=== PATIENT | male | born 1975 | race Caucasian/White ===

== ENCOUNTER 2017-05-28 00:40 | Inpatient (IN) | END 2017-05-29 18:25 | disposition home or self-care (01) | DRG 897 ==

== ENCOUNTER 2018-01-27 11:07 | Emergency (ER) | END 2018-01-27 13:59 | disposition home or self-care (01) ==

== ENCOUNTER 2018-07-03 19:53 | Emergency (ER) | payer SELFPAY ==
[~2018-07-03] VITALS: Wt 101.0 kg
[~2018-07-03 19:53] MED LIST: LORA1TAB PO; OMEP40CA6 PO; ONDA8TAB14 PO
[2018-07-04] MEDS ORDERED: SOD CHLORIDE 0.9% 1,000 ML IV STA (01:03)
[2018-07-04] MEDS ORDERED: LIDOCAINE/MYLANTA 40 ML BTL PO STA (01:03)
[2018-07-04] MEDS ORDERED: morphine 4 MG/ML VIAL IV STA (01:03)
[2018-07-04] MEDS ORDERED: ONDANSETRON 4 MG INJ IV STA (01:03)
[2018-07-04] MEDS ORDERED: FAMOTIDINE 20 MG TAB PO STA (01:03)
[2018-07-04] MEDS ORDERED: LORAZEPAM 2 MG INJ IV ONE (05:00)
--- NOTE | 2018-07-04 05:01 | ERD ---
ER Documentation Chief Complaint Chief Complaint DIFFUSE ABD PAIN, PALPITATION X TODAY. HX HTN HPI 42-year-old male presenting with complaints of lower abdominal pain that started yesterday. He also had one episode of blood after having a bowel movement which scared him. He has been complaining of palpitations as well. He has been sober for 5 months but decided to drink 1 bottle of wine yesterday. This made him feel much worse. No fevers or chills. No nausea or vomiting. His pain is aching, nonradiating, intermittent with no alleviating or exacerbating factors. ROS All systems reviewed and are negative except as per history of present illness. Medications Home Meds Discontinued Scripts Omeprazole* (Omeprazole*) 40 Mg Capsule.dr, 40 MG PO DAILY, #10 CAP Prov:JULIANNA CHAWLASTWILLS A. DO 01/27/18 Ondansetron (Ondansetron Odt) 8 Mg Tab.rapdis, 8 MG PO Q6H PRN for NAUSEA AND/OR VOMITING, #10 TAB Prov:LEJULIANNA URIBESTOLOS A. DO 01/27/18 Lorazepam* (Lorazepam*) 1 Mg Tablet, 1 MG PO Q8H PRN for ANXIETY, #15 TAB Prov:LEKKOS,APOSTOLOS A. DO 01/27/18 Allergies Allergies: Coded Allergies: No Known Allergy (Unverified , 07/04/18) PMhx/Soc Medical and Surgical Hx: pt denies Surgical Hx History of Surgery: Yes (ELBOW REPAIR) Anesthesia Reaction: No Hx Neurological Disorder: No Hx Respiratory Disorders: No Hx Cardiac Disorders: Yes (HTN) Hx Psychiatric Problems: No Hx Miscellaneous Medical Probl: No Hx Alcohol Use: Yes (History of alcoholism) Hx Substance Use: No Hx Tobacco Use: No Smoking Status: Never smoker FmHx Family History: No diabetes Physical Exam Vitals Vital Signs Date Temp Pulse Resp B/P (MAP) Pulse Ox O2 O2 Flow FiO2 Time Delivery Rate 07/04/18 97 18 117/85 98 Room Air 03:23 (96) 07/04/18 98 18 129/90 96 Room Air 01:44 (103) 07/03/18 99.0 116 20 159/118 97 20:33 (132) Physical Exam Const: No acute distress Head: Atraumatic Eyes: Normal Conjunctiva ENT: Normal External Ears, Nose and Mouth. Neck: Full range of motion. No meningismus. Resp: Clear to auscultation bilaterally Cardio: Tachycardic rate with regular rhythm, no murmurs Abd: Soft, mild lower abdominal tenderness with guarding but no rebound, non distended. Negative Rain sign. Normal bowel sounds Skin: No petechiae or rashes Back: No midline or flank tenderness Ext: No cyanosis, or edema Neur: Awake and alert Psych: Normal Mood and Affect Result Diagram: 07/04/18 0122 07/04/18 0122 Results 24 hrs Laboratory Tests Test 07/04/18 01:21 07/04/18 01:22 Urine Color COLORLESS Urine Clarity CLEAR Urine pH 8.0 Urine Specific [place] 1.005 Urine Ketones NEGATIVE mg/dL Urine Nitrite NEGATIVE mg/dL Urine Bilirubin NEGATIVE mg/dL Urine Urobilinogen NEGATIVE mg/dL Urine Leukocyte Esterase NEGATIVE Talon/ul Urine Microscopic RBC 0 /HPF Urine Microscopic WBC 0 /HPF Urine Hemoglobin 1+ mg/dL Urine Glucose NEGATIVE mg/dL Urine Total Protein NEGATIVE mg/dl White Blood Count 11.3 10^3/ul Red Blood Count 5.36 10^6/ul Hemoglobin 16.8 g/dl Hematocrit 49.0 % Mean Corpuscular Volume 91.4 fl Mean Corpuscular Hemoglobin 31.3 pg Mean Corpuscular Hemoglobin Concent 34.3 g/dl Red Cell Distribution Width 13.0 % Platelet Count 350 10^3/UL Mean Platelet Volume 10.4 fl Immature Granulocytes % 0.400 % Neutrophils % 40.4 % Lymphocytes % 48.2 % Monocytes % 8.8 % Eosinophils % 1.4 % Basophils % 0.8 % Nucleated Red Blood Cells % 0.0 /100WBC Immature Granulocytes # 0.050 10^3/ul Neutrophils # 4.6 10^3/ul Lymphocytes # 5.5 10^3/ul Monocytes # 1.0 10^3/ul Eosinophils # 0.2 10^3/ul Basophils # 0.1 10^3/ul Nucleated Red Blood Cells # 0.0 10^3/ul Sodium Level 142 mmol/L Potassium Level 3.7 mmol/L Chloride Level 97 mmol/L Carbon Dioxide Level 30 mmol/L Anion Gap 15 Blood Urea Nitrogen 10 mg/dl Creatinine 0.83 mg/dl Est Glomerular Filtrat Rate mL/min > 60 mL/min Glucose Level 120 mg/dl Calcium Level 9.5 mg/dl Total Bilirubin 0.5 mg/dl Direct Bilirubin 0.00 mg/dl Indirect Bilirubin 0.5 mg/dl Aspartate Amino Transf (AST/SGOT) 60 IU/L Alanine Aminotransferase (ALT/SGPT) 66 IU/L Alkaline Phosphatase 91 IU/L Total Protein 8.1 g/dl Albumin 4.7 g/dl Globulin 3.40 g/dl Albumin/Globulin Ratio 1.38 Lipase 97 U/L Current Medications Medications Dose Sig/Candice Start Time Status Last (Trade) Ordered Route PRN Stop Time Admin Dose Reason Admin Sodium 1,000 ml @ Q1H STAT 07/04/18 DC 07/04/18 Chloride 1,000 mls/hr IV 01:03 01:12 07/04/18 02:02 Morphine 4 mg ONCE STAT 07/04/18 DC 07/04/18 Sulfate IV 01:03 01:12 (morphine) 07/04/18 01:05 Ondansetron 4 mg ONCE STAT 07/04/18 DC 07/04/18 HCl (Zofran IV 01:03 01:12 Inj) 07/04/18 01:05 Famotidine 20 mg ONCE STAT 07/04/18 DC 07/04/18 (Pepcid) PO 01:03 01:12 07/04/18 01:05 40 ml ONCE STAT 07/04/18 DC 07/04/18 Miscellaneous PO 01:03 01:12 Medication 07/04/18 01:05 (Gi Cocktail (2)) Lorazepam 0.5 mg ONCE ONCE 07/04/18 (Ativan) IV 05:00 07/04/18 05:01 Procedures/MDM EMERGENT LABS AND DIAGNOSTIC STUDIES: Lab Results above were reviewed and interpreted by me. CBC: no anemia or evidence of infection CMP: No evidence of clinically significant electrolyte abnormality, acidosis, renal failure, hypoglycemia, liver disease, or biliary obstruction UA: no evidence of infection 12-lead EKG was interpreted by Corine Olivarez MD: Sinus tachycardia with ventricular rate of 102 beats per minute Normal axis Normal intervals No acute ST or T wave changes suggestive of acute ischemia or STEMI. Radiology Results as interpreted by Radiology below were reviewed by Lissett Olivarez MD: CT abdomen pelvis shows no acute abnormalities Initial Nursing notes reviewed. Previous Medical Records requested via the Electronic Health Record. EMERGENCY DEPARTMENT COURSE / MEDICAL DECISION MAKING: Patient is presenting with abdominal pain and one episode of rectal bleeding, now resolved. Vitals were notable for tachycardia. It seems like he might be somewhat intoxicated as well. Labs did not show any significant abnormalities. CT of the abdomen and pelvis was done to evaluate for possible diverticulitis versus appendicitis. CT did not show any significant abnormalities. Patient was treated with IV fluids as well as Ativan. Upon reevaluation, he is feeling better. I feel the patient stable for discharge with continued outpatient follow-up. At this moment the etiology of the abdominal pain is unknown. The patients vitals have been noted and are currently afebrile and hemodynamically stable. The workup, physical exam and observation period do not indicate a serious cause to the pain. The patients symptoms have improved while in the ED and the patient remains hemodynamically stable. Patient was able to tolerate PO. The current assessment has been explained to the patient including the fact that the etiology of the pain cannot be ruled out with certainty. Patient was advised that in the event this is early in the process of a more serious condition they may expect their symptoms to worsen and if so to return to the emergency department immediately. Patient was advised to follow up with primary care physician as soon as possible for re-evaluation within the next 1-2 days. All of the patients questions were answered. Patient verbalized understanding of plan and agrees. Advised to return to the ER for reevaluation within 12 hours if symptoms worsen. Patient's blood pressure was elevated (>120/80) but appears stable without evidence of hypertensive emergency or urgency. The patient was counseled about the risks of hypertension and urged to pursue outpatient monitoring and therapy within a week with their primary care physician. Departure Diagnosis: Primary Impression: Abdominal pain Abdominal location: lower abdomen, unspecified Qualified Codes: R10.30 - Lower abdominal pain, unspecified Condition: Stable Patient Instructions: Abdominal Pain, Rectal Bleed, Stable Referrals: NO PRIMARY,CARE PHYSICIAN (PCP) [facility]) Usted se yancey hecho un examen mdico de control que le indica que no est en samson condicin que requiera tratamiento urgente en el Departamento de Emergencia. Un estudio ms profundo y el tratamiento de prado condicin pueden esperar sin ningn riesgo hasta que usted sea atendida/o en el consultorio de prado mdico o samson clnica. Es responsabilidad suya arreglar samson nimo para el seguimiento del kayli. MANEJO DE CONDICIONES NO URGENTES EN EL FUTURO 1) Si usted tiene un mdico de atencin primaria: Usted debera llamar a prado mdico de atencin primaria antes de venir al departamento de emergencia. Despus de las horas de consultorio, prado doctor o prado asociado/a est disponible por telfono. El mdico o enfermero de lorena en el servicio telefnico puede asesorarle por ashlee medio para atender el problema, o kayli contrario se puede programar samson nimo. 2) Si usted no tiene un mdico de atencin primaria: Llame al mdico o clnica de referencia que aparece abajo devante las horas de consultorio para hacer samson nimo para que le vean. CLINICAS: [facility] [phone] [facility] [phone] [facility] [phone] [facility] [phone] [facility] [phone] [address] [facility]. [phone] [address] [facility] () Usted se yancey hecho un examen mdico de control que le indica que no est en samson condicin que requiera tratamiento urgente en el Departamento de Emergencia. Un estudio ms profundo y el tratamiento de prado condicin pueden esperar sin ningn riesgo hasta que usted sea atendida/o en el consultorio de prado mdico o samson clnica. Es responsabilidad suya arreglar samson nimo para el seguimiento del kayli. MANEJO DE CONDICIONES NO URGENTES EN EL FUTURO 1) Si usted tiene un mdico de atencin primaria: Usted debera llamar a prado mdico de atencin primaria antes de venir al departamento de emergencia. Despus de las horas de consultorio, prado doctor o prado asociado/a est disponible por telfono. El mdico o enfermero de lorena en el servicio telefnico puede asesorarle por ashlee medio para atender el problema, o kayli contrario se puede programar samson nimo. 2) Si usted no tiene un mdico de atencin primaria: Llame al mdico o condado institucions de referencia que aparece abajo devante las horas de consultorio para hacer samson nimo para que le vean. SI USTED NO PUEDE PAGAR PARA MADELEINE UN MEDICO puede ir a: [facility] [address] [place] [address] [facility] [address] [place] [address] [facility] [address] [place] [address] [facility] [address] [place] [address] Additional Instructions: Make an appointment to see her primary care doctor within the next 2 to 3 days. If any of your symptoms worsen, return to the ER. TRUNG OLIVAREZ MD July 04, 2018 05:01
[2018-07-04 05:13] VITALS: BP 137/98; PULSE 94; RESP 18
== END 2018-07-04 05:22 | disposition home or self-care (01) ==
LOC: E/R 19:53
DX: R10.30 Lower abdominal pain, unspecified (principal); I10 Essential (primary) hypertension
CPT/HCPCS: 36415; 71045; 74176; 80053; 81001; 83690; 85025; 93005; 96374; 96375; 99285; J2060; J2270; J2405; J7030